=== PATIENT | male | born 1960 | race Two or more races ===

== ENCOUNTER 2022-02-25 11:23 | Emergency (ER) | payer OTHER ==
[~2022-02-25] VITALS: Ht 170.2 cm; Wt 87.5 kg
== END 2022-02-25 14:26 | disposition home or self-care (01) ==
LOC: ER 11:23
DX: B34.0 Adenovirus infection, unspecified (principal); M54.50 Low back pain, unspecified; Z20.822 Contact with and (suspected) exposure to COVID-19